=== PATIENT | male | born 1985 | race Caucasian/White ===

== ENCOUNTER 2018-06-22 16:18 | Emergency (ER) | payer OTHER ==
[2018-06-22] MEDS ORDERED: DIPHTH/TETANUS/ACEL. PERTUSSIS IM ONLY ONE (16:55)
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
--- NOTE | 2018-06-22 17:43 | RADIOLOGY IMAGING REPORT ---
FACILITY: [facility] - [place] PATIENT NAME: Bernabe Sebastian : 1985 MR: [id number] V: [id number] EXAM DATE: ORDERING PHYSICIAN: RODNEY STEWARD TECHNOLOGIST: Location: [facility] - [place], [place] Patient: Bernabe Sebastian : 1985 Visit/Account:[id number] Date of Sevice: 06/22/2018 Right femur Indication: Pain after trauma Comparison: None available Findings: Two views of the right femur show no evidence of fracture, dislocation, or acute osseous abnormality. There is no focal soft tissue abnormality. No evidence of radiopaque foreign body. IMPRESSION: 1. No acute osseous abnormality right femur. Report Dictated By: Nelson Pelaez at 06/22/2018 5:37 PM Report E-Signed By: Nelson Pelaez at 06/22/2018 5:38 PM WSN:[email or web address]
--- NOTE | 2018-06-22 17:44 | RADIOLOGY IMAGING REPORT ---
FACILITY: [facility] - [place] PATIENT NAME: Bernabe Sebastian : 1985 MR: [id number] V: [id number] EXAM DATE: ORDERING PHYSICIAN: RODNEY STEWARD TECHNOLOGIST: Location: [facility] Patient: Bernabe Sebastian : 1985 Visit/Account:[id number] Date of Sevice: 06/22/2018 HAND COMPLETE LEFT Indication: Pain after trauma Comparison: None Available. Findings: No evidence of fracture, dislocation, or acute osseous abnormality of the left hand. There is no focal soft tissue abnormality. No evidence of radiopaque foreign body. IMPRESSION: 1.No acute osseous abnormality of the left hand Report Dictated By: Nelson Pelaez at 06/22/2018 5:38 PM Report E-Signed By: Nelson Pelaez at 06/22/2018 5:39 PM WSN:[email or web address]
--- NOTE | 2018-06-22 17:58 | RADIOLOGY IMAGING REPORT ---
[place] [facility] [place] Bernabe Sebastian : 1985 MR: [id number] V: [id number] EXAM DATE: ORDERING PHYSICIAN: RODNEY STEWARD TECHNOLOGIST: Location: [facility] - [place] Patient: Bernabe Sebastian : 1985 Visit/Account:[id number] Date of Sevice: 06/22/2018 EXAMINATION: CT Head without intravenous contrast CT Face without intravenous contrast CT Cervical spine without intravenous contrast HISTORY: Trauma. TECHNIQUE: Head: Axial images were obtained from the skull base to the vertex without intravenous contrast. Sa gittal and coronal reformatted images are also submitted. Face: Axial images were obtained from the superior aspect of the orbits through the inferior aspect of mandible. Coronal and sagittal reformatted images were obtained from the axial source data. Cervical spine: Axial images were obtained from the skull base through the upper thoracic spine with out IV contrast administration. Coronal and sagittal reformatted images were obtained from the axial source data. One of the following dose optimization techniques was utilized in the performance of this exam: Autom ated exposure control; adjustment of the mA and/or kV according to the patient's size; or use of an i terative reconstruction technique. Specific details can be referenced in the facility's radiology C T exam operational policy. COMPARISON: None available. FINDINGS: HEAD: Brain volume: Normal. Ventricles: Negative. Acute ischemic changes: None. Hemorrhage: None. Masses / edema: None. Guzman-white: Negative. White matter: Negative. Vessels: Negative. Extra-axial: Negative. Calvarium / skull base: Negative. FACE: Soft Tissues: Soft tissue gas in the left orbit. Mild left periorbital soft tissue swelling. No int raorbital hematoma. Mandible / TMJ: Negative. Maxillae / pterygoid plates: Negative. Zygoma / zygomatic arches: Negative. Orbits: Minimally displaced left orbital floor fracture. Left lamina papyracea fracture. Mild gas i n the left orbit with no hematoma. Nasal bones / nasal septum: Mildly displaced nasal bone fractures. Mildly displaced anterior superio r nasal septum fracture. Leftward nasal septal deviation. Frontal bones: Negative. Sinuses: Blood in the left maxillary sinus. CERVICAL SPINE: Alignment: Mild reversal of the normal lordosis. Mild convex rightward curvature. Cranio-cervical junction: Negative. Vertebral bodies: Negative. Posterior elements: Negative. Hardware: None. Disc Spaces: Mild disc height loss with small disc osteophytes at C5-C6 and C6-C7. Soft tissues: No prevertebral soft tissue swelling. Visualized upper chest: Negative. IMPRESSION: 1. Acute mildly displaced fractures of the left orbital floor and left lamina papyracea with gas in the left orbit. No intraorbital hematoma. 2. Acute mildly displaced fractures of the nasal bones and anterior/superior nasal septum. 3. No acute intracranial abnormality. 4. No acute cervical spine fracture. Mild reversal of the normal lordosis and mild convex rightward curvature may be positional or secondary to muscle spasm. 5. Mild degenerative disc disease at C5-C6 and C6-C7. Report Dictated By: Doron Encinas MD at 06/22/2018 5:35 PM Report E-Signed By: Doron Encinas MD at 06/22/2018 5:54 PM WSN:[email or web address]
--- NOTE | 2018-06-22 17:58 | RADIOLOGY IMAGING REPORT ---
FACILITY: PATIENT NAME: Bernabe Sebastian : 1985 MR: [id number] V: [id number] EXAM DATE: ORDERING PHYSICIAN: RODNEY STEWARD TECHNOLOGIST: Location: [facility] - [place] Patient: Bernabe Sebastian : 1985 Visit/Account:[id number] Date of Sevice: 06/22/2018 EXAMINATION: CT Head without intravenous contrast CT Face without intravenous contrast CT Cervical spine without intravenous contrast HISTORY: Trauma. TECHNIQUE: Head: Axial images were obtained from the skull base to the vertex without intravenous contrast. Sa gittal and coronal reformatted images are also submitted. Face: Axial images were obtained from the superior aspect of the orbits through the inferior aspect of mandible. Coronal and sagittal reformatted images were obtained from the axial source data. Cervical spine: Axial images were obtained from the skull base through the upper thoracic spine with out IV contrast administration. Coronal and sagittal reformatted images were obtained from the axial source data. One of the following dose optimization techniques was utilized in the performance of this exam: Autom ated exposure control; adjustment of the mA and/or kV according to the patient's size; or use of an i terative reconstruction technique. Specific details can be referenced in the facility's radiology C T exam operational policy. COMPARISON: None available. FINDINGS: HEAD: Brain volume: Normal. Ventricles: Negative. Acute ischemic changes: None. Hemorrhage: None. Masses / edema: None. Guzman-white: Negative. White matter: Negative. Vessels: Negative. Extra-axial: Negative. Calvarium / skull base: Negative. FACE: Soft Tissues: Soft tissue gas in the left orbit. Mild left periorbital soft tissue swelling. No int raorbital hematoma. Mandible / TMJ: Negative. Maxillae / pterygoid plates: Negative. Zygoma / zygomatic arches: Negative. Orbits: Minimally displaced left orbital floor fracture. Left lamina papyracea fracture. Mild gas i n the left orbit with no hematoma. Nasal bones / nasal septum: Mildly displaced nasal bone fractures. Mildly displaced anterior superio r nasal septum fracture. Leftward nasal septal deviation. Frontal bones: Negative. Sinuses: Blood in the left maxillary sinus. CERVICAL SPINE: Alignment: Mild reversal of the normal lordosis. Mild convex rightward curvature. Cranio-cervical junction: Negative. Vertebral bodies: Negative. Posterior elements: Negative. Hardware: None. Disc Spaces: Mild disc height loss with small disc osteophytes at C5-C6 and C6-C7. Soft tissues: No prevertebral soft tissue swelling. Visualized upper chest: Negative. IMPRESSION: 1. Acute mildly displaced fractures of the left orbital floor and left lamina papyracea with gas in the left orbit. No intraorbital hematoma. 2. Acute mildly displaced fractures of the nasal bones and anterior/superior nasal septum. 3. No acute intracranial abnormality. 4. No acute cervical spine fracture. Mild reversal of the normal lordosis and mild convex rightward curvature may be positional or secondary to muscle spasm. 5. Mild degenerative disc disease at C5-C6 and C6-C7. Report Dictated By: Doron Encinas MD at 06/22/2018 5:35 PM Report E-Signed By: Doron Encinas MD at 06/22/2018 5:54 PM WSN:[email or web address]
--- NOTE | 2018-06-22 17:59 | RADIOLOGY IMAGING REPORT ---
[place] [facility] [place] NAME: Bernabe Sebastian : 1985 MR: [id number] V: [id number] EXAM DATE: ORDERING PHYSICIAN: RODNEY STEWARD TECHNOLOGIST: Location: [facility] Patient: Bernabe Sebastian : 1985 Visit/Account:[id number] Date of Sevice: 06/22/2018 EXAMINATION: CT Head without intravenous contrast CT Face without intravenous contrast CT Cervical spine without intravenous contrast HISTORY: Trauma. TECHNIQUE: Head: Axial images were obtained from the skull base to the vertex without intravenous contrast. Sa gittal and coronal reformatted images are also submitted. Face: Axial images were obtained from the superior aspect of the orbits through the inferior aspect of mandible. Coronal and sagittal reformatted images were obtained from the axial source data. Cervical spine: Axial images were obtained from the skull base through the upper thoracic spine with out IV contrast administration. Coronal and sagittal reformatted images were obtained from the axial source data. One of the following dose optimization techniques was utilized in the performance of this exam: Autom ated exposure control; adjustment of the mA and/or kV according to the patient's size; or use of an i terative reconstruction technique. Specific details can be referenced in the facility's radiology C T exam operational policy. COMPARISON: None available. FINDINGS: HEAD: Brain volume: Normal. Ventricles: Negative. Acute ischemic changes: None. Hemorrhage: None. Masses / edema: None. Guzman-white: Negative. White matter: Negative. Vessels: Negative. Extra-axial: Negative. Calvarium / skull base: Negative. FACE: Soft Tissues: Soft tissue gas in the left orbit. Mild left periorbital soft tissue swelling. No int raorbital hematoma. Mandible / TMJ: Negative. Maxillae / pterygoid plates: Negative. Zygoma / zygomatic arches: Negative. Orbits: Minimally displaced left orbital floor fracture. Left lamina papyracea fracture. Mild gas i n the left orbit with no hematoma. Nasal bones / nasal septum: Mildly displaced nasal bone fractures. Mildly displaced anterior superio r nasal septum fracture. Leftward nasal septal deviation. Frontal bones: Negative. Sinuses: Blood in the left maxillary sinus. CERVICAL SPINE: Alignment: Mild reversal of the normal lordosis. Mild convex rightward curvature. Cranio-cervical junction: Negative. Vertebral bodies: Negative. Posterior elements: Negative. Hardware: None. Disc Spaces: Mild disc height loss with small disc osteophytes at C5-C6 and C6-C7. Soft tissues: No prevertebral soft tissue swelling. Visualized upper chest: Negative. IMPRESSION: 1. Acute mildly displaced fractures of the left orbital floor and left lamina papyracea with gas in the left orbit. No intraorbital hematoma. 2. Acute mildly displaced fractures of the nasal bones and anterior/superior nasal septum. 3. No acute intracranial abnormality. 4. No acute cervical spine fracture. Mild reversal of the normal lordosis and mild convex rightward curvature may be positional or secondary to muscle spasm. 5. Mild degenerative disc disease at C5-C6 and C6-C7. Report Dictated By: Doron Encinas MD at 06/22/2018 5:35 PM Report E-Signed By: Doron Encinas MD at 06/22/2018 5:54 PM WSN:[email or web address]
[2018-06-22 18:00] VITALS: BP 137/102
[2018-06-22] MEDS ORDERED: AMOX-559 PO (18:49)
[2018-06-22] MEDS ORDERED: OXYC-865 PO (18:49)
== END 2018-06-22 19:06 | disposition home or self-care (01) ==
LOC: ER 16:40
DX: S02.32XA Fracture of orbital floor, left side, initial encounter for closed fracture (principal); S02.2XXA Fracture of nasal bones, initial encounter for closed fracture; V86.52XA Driver of snowmobile injured in nontraffic accident, initial encounter; Y93.29 Activity, other involving ice and snow
CPT/HCPCS: 70450; 70486; 72125; 90471; 90715; 99285; L0172